=== PATIENT | male | born 1950 | race Caucasian/White ===

== ENCOUNTER 2021-08-29 08:25 | Outpatient (CLI) | payer OTHER | END 2021-08-29 08:26 | disposition home or self-care (01) | LOC: CSHWCC 08:25 | PROVIDERS: ATTEND Nurse Practitioner Family | DX: T81.89XD Other complications of procedures, not elsewhere classified, subsequent encounter (principal); K94.09 Other complications of colostomy; K57.20 Diverticulitis of large intestine with perforation and abscess without bleeding; I11.9 Hypertensive heart disease without heart failure; I48.91 Unspecified atrial fibrillation; E78.2 Mixed hyperlipidemia ==

== ENCOUNTER 2021-09-05 09:58 | Outpatient (CLI) | payer MEDICARE | END 2021-09-05 09:59 | disposition home or self-care (01) | LOC: CSHWCC 09:58 | PROVIDERS: ATTEND Nurse Practitioner Family | DX: T81.89XD Other complications of procedures, not elsewhere classified, subsequent encounter (principal); E78.2 Mixed hyperlipidemia; I10 Essential (primary) hypertension; I48.91 Unspecified atrial fibrillation; I51.9 Heart disease, unspecified; K57.20 Diverticulitis of large intestine with perforation and abscess without bleeding; K94.09 Other complications of colostomy ==

== ENCOUNTER 2021-09-12 14:29 | Outpatient (CLI) | payer MEDICARE | END 2021-09-12 14:30 | disposition home or self-care (01) | LOC: CSHWCC 14:29 | PROVIDERS: ATTEND Nurse Practitioner Family | DX: T81.89XD Other complications of procedures, not elsewhere classified, subsequent encounter (principal); I11.9 Hypertensive heart disease without heart failure; E78.2 Mixed hyperlipidemia; I48.91 Unspecified atrial fibrillation; K57.20 Diverticulitis of large intestine with perforation and abscess without bleeding; K94.09 Other complications of colostomy | CPT/HCPCS: 97139; G0463; 99213 ==

== ENCOUNTER 2021-09-19 09:50 | Outpatient (CLI) | payer OTHER | END 2021-09-19 09:51 | disposition home or self-care (01) | LOC: CSHWCC 09:50 | PROVIDERS: ATTEND Nurse Practitioner Family | DX: T81.89XD Other complications of procedures, not elsewhere classified, subsequent encounter (principal) ==

== ENCOUNTER 2022-11-26 11:35 | Outpatient (CLI) | payer OTHER | END 2022-11-26 11:36 | disposition home or self-care (01) | LOC: CSHCT 11:35 | PROVIDERS: ATTEND Family Medicine | DX: Z12.2 Encounter for screening for malignant neoplasm of respiratory organs (principal); F17.210 Nicotine dependence, cigarettes, uncomplicated | CPT/HCPCS: 71271 ==